=== PATIENT | female | born 1970 | race African-American/Black ===

== ENCOUNTER 2016-08-07 20:52 | Emergency (ER) | payer OTHER ==
[~2016-08-07] VITALS: Ht 170.2 cm; Wt 63.5 kg
[2016-08-07 20:52] VITALS: BP 147/94; PULSE 124; RESP 19; TEMP 98.8; O2SAT 100
[~2016-08-07 20:52] MED LIST: ATEN-41 PO; FUROSEMIDE; LISI-600 PO; POTASSIUM; [UNRECOGNIZED DRUG - OTHER]
[2016-08-07] MEDS ORDERED: EPINEPHrine 1 MG/ML AMP SUBCUT ONE (21:15)
[2016-08-07] MEDS ORDERED: DIPHENHYDRAMINE INJ 50 MG/ML VIAL IVP ONE (21:15)
[2016-08-07] MEDS ORDERED: NACL 0.9% 1,000 ML IV ONE (21:15)
[2016-08-07] MEDS ORDERED: FAMOTIDINE PF 20 MG/2 ML VIAL IVP ONE (21:15)
[2016-08-07] MEDS ORDERED: LORazepam 2 MG/ML VIAL IVP ONE (21:15)
[2016-08-07] MEDS ORDERED: methylPREDNISolone SOD SUCC/PF 62.5 MG/ML VIAL IVP ONE (21:15)
[2016-08-07] MEDS ORDERED: LORazepam 2 MG/ML VIAL (FOR ER USE) ONE (21:22)
[2016-08-07 22:59] VITALS: BP 111/67; PULSE 96; RESP 15; TEMP 98.2; O2SAT 100
== END 2016-08-07 22:59 | disposition home or self-care (01) ==
LOC: SED 20:52
DX: L50.8 Other urticaria (principal); I10 Essential (primary) hypertension; Z98.84 Bariatric surgery status; Z88.2 Allergy status to sulfonamides; Z88.5 Allergy status to narcotic agent; Z91.018 Allergy to other foods
CPT/HCPCS: 93005; 96361; 96372; 96374; 96375; 99284; J2060

== ENCOUNTER 2020-10-25 00:27 | Emergency (ER) | payer OTHER ==
[~2020-10-25] VITALS: Ht 170.2 cm; Wt 68.9 kg
[~2020-10-25 00:27] MED LIST changes: -LISI-600 PO; +LISI20TA30 PO
[2020-10-25 00:35] VITALS: BP_SYST 131
--- NOTE | 2020-10-25 00:35 | NUR ---
PT TO BED 8 FOR EVALUATION
--- NOTE | 2020-10-25 00:38 | NUR ---
PT AAO AND AMBULATORY REPORTING WORSENING LEFT KNEE DISCOMFORT SINCE FRIDAY. PT REPORTS PAIN, SWELLING, AND TIGHTNESS 8/10 PAIN SCALE WHEN SHE BENDS IT. LEFT KNEE IS NOTED SWOLLEN. PT DENIES ANY ACUTE INJURY.
--- NOTE | 2020-10-25 00:40 | NUR ---
DR. MAGUIRE AT BEDSIDE TO ASSESS.
--- NOTE | 2020-10-25 00:54 | NUR ---
PORTABLE XRAY DONE AT BESIDE
[2020-10-25] MEDS ORDERED: KETOROLAC TROMETHAMINE 60 MG/2 ML VIAL IM ONE (01:00)
--- NOTE | 2020-10-25 01:40 | NUR ---
Left knee immobilizer applied as ordered
[2020-10-25] MEDS ORDERED: IBUP-1970 PO (01:50)
[2020-10-25 01:56] VITALS: BP_SYST 131
--- NOTE | 2020-10-25 01:56 | NUR ---
Patient given written and verbal discharge instructions and verbalizes understanding. DR. ANDREZ NASSAR MD discussed with patient the results and treatment provided. Patient in stable condition. ID arm band removed. Rx SENT PER MD. Patient educated on pain management and to follow up with PMD. Pain Scale 0/10. Opportunity for questions provided and answered. Medication side effect fact sheet provided.
== END 2020-10-25 01:56 | disposition home or self-care (01) ==
LOC: SED 00:27
DX: M17.12 Unilateral primary osteoarthritis, left knee (principal); M25.462 Effusion, left knee; I10 Essential (primary) hypertension; Z88.0 Allergy status to penicillin; Z88.2 Allergy status to sulfonamides; Z79.899 Other long term (current) drug therapy
CPT/HCPCS: 29505; 73564; 96372; 99283; J1885